=== PATIENT | male | born 1990 | race Two or more races ===

== ENCOUNTER 2023-07-12 10:31 | Emergency (ER) | payer MEDICAID, OTHER ==
[~2023-07-12] VITALS: Ht 172.7 cm; Wt 81.8 kg
[2023-07-12] MEDS: cefTRIAXone SOD 1,000 MG VL IM ONE (12:30)
[2023-07-12] MEDS: THIAMINE 100mg/ml INJ (200mg/2ml VIAL) IM ONE (12:30)
[2023-07-12] MEDS: TETANUS-DIPTH-ACEL PERTUSSIS 0.5ML SYR Tdap IM ONE (12:32)
[2023-07-12 12:36] VITALS: BP 128/62; PULSE 98; RESP 17; TEMP 97.7; O2SAT 99
== END 2023-07-12 12:38 | disposition home or self-care (01) ==
LOC: EDBD 10:31 → ER 10:31
DX: S02.2XXA Fracture of nasal bones, initial encounter for closed fracture (principal); F10.129 Alcohol abuse with intoxication, unspecified; V49.9XXA Car occupant (driver) (passenger) injured in unspecified traffic accident, initial encounter; W22.10XA Striking against or struck by unspecified automobile airbag, initial encounter; Y93.89 Activity, other specified; Y92.89 Other specified places as the place of occurrence of the external cause; Y99.8 Other external cause status; Y90.8 Blood alcohol level of 240 mg/100 ml or more
CPT/HCPCS: 36415; 70450; 70486; 80320; 90471; 90715; 96372; 99285; J0696; J3411